=== PATIENT | female | born 1985 | race Caucasian/White ===

== ENCOUNTER 2017-09-07 10:53 | Emergency (ER) | payer MEDICAID, SELFPAY ==
[2017-09-07 10:54] VITALS: BP 136/78; PULSE 127; RESP 16; TEMP 36.4; O2SAT 99; BMI 27.4
--- NOTE | 2017-09-07 11:11 | RAD_ITS ---
STUDY: X-RAY - RIGHT SHOULDER REASON FOR EXAM: Female, 32 years old. ] Chromic clavicular joint pain following injury. TECHNIQUE: 3 view(s) of the shoulder. COMPARISON: None. FINDINGS: Normal glenohumeral articulation. There is widening of the AC joint, with displacement of the clavicle, consistent with a Type III acromioclavicular joint separation. Normal acromion. Normal humeral head and visualized proximal humerus. The soft tissue structures are unremarkable. Normal visualized pulmonary apex. RAD/Shoulder min 2 Views IMPRESSION: Type III right AC joint separation. Electronically Signed: Remi Dolan MD at 12:18 EDT Tel [phone], Service support ,
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
[2017-09-07] MEDS: HYDROcodone Bitartrate/Apap 5/325 Tablet PO (11:57)
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
[2017-09-07 12:55] VITALS: PULSE 88; RESP 16; O2SAT 100
== END 2017-09-07 12:56 | disposition home or self-care (01) ==
LOC: ED 11:29
PROVIDERS: Emergency Provider Emergency Medicine
DX: M24.411 Recurrent dislocation, right shoulder (principal); Y09 Assault by unspecified means; Z86.711 Personal history of pulmonary embolism; Z72.0 Tobacco use
CPT/HCPCS: 73000; 73030; 99283

== ENCOUNTER 2017-12-21 14:38 | Emergency (ER) | payer MEDICAID, SELFPAY ==
[2017-12-21 14:39] VITALS: BP 116/76; PULSE 113; RESP 16; TEMP 36.4; O2SAT 100; BMI 25.0
[2017-12-21] MEDS: HYDROcodone Bitartrate/Apap 5/325 Tablet PO (16:23)
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
--- NOTE | 2017-12-21 16:52 | ED.DEP ---
ED Disposition - Plan for ED Patient: Disposition: Home or Assisted Living Chief Complaint: Upper Extremity Injury Instructions: ED Sprain Shoulder Prescriptions: Hydrocodone Bitart/Apap 5-325 [[place] 5MG-325MG] 1 tab PO Q6H PRN PRN 3 Days #10 tab PRN Reason: Pain Referrals: Care Physician,No Primary [Primary Care Provider] -
[2017-12-21 17:00] VITALS: BP 108/57; PULSE 62; RESP 15; O2SAT 98
== END 2017-12-21 17:00 | disposition home or self-care (01) ==
PROVIDERS: Emergency Provider Emergency Medicine
DX: S43.101A Unspecified dislocation of right acromioclavicular joint, initial encounter (principal); Y09 Assault by unspecified means; Y93.89 Activity, other specified; Y92.9 Unspecified place or not applicable
CPT/HCPCS: 73030; 99283

== ENCOUNTER 2018-04-22 11:07 | Emergency (ER) | payer MEDICAID, SELFPAY ==
[2018-04-22] VITALS (7 sets, daily range): BP systolic 99–116; BP diastolic 65–72; PULSE 67–91; RESP 14–20; TEMP 36.6; O2SAT 98–99; BMI 26.5
[2018-04-22 11:41] LABS: Mucous, Urine 0 SEEN /hpf (<or=2+); Red Blood Cells-Urine 0 SEEN /hpf (0-5)
[2018-04-22 11:43] LABS: Color, Urine Yellow (Yellow); Glucose, Dipstick Normal (Normal); Ketone-Dipstick Negative (Negative); Leukocyte Esterase-Dipstick 25 /ul (Negative); Nitrite-Dipstick Negative (Negative); Occult Blood-Urine Negative /ul (Negative); Protein-Dipstick Negative (Negative); Specific Gravity, Urine 1.015 (1.002-1.030); Urine Bilirubin Dipstick Negative (Negative); Urine Clarity Sl. Cloudy (Clear); Urine Urobilinogen Normal (Normal)
[2018-04-22 11:49] LABS: Bacteria 1+ /hpf (None Seen); Squamous Epithelial Cells - UA 0-5 SEEN /hpf (5-10); White Blood Cells 0-5 SEEN /hpf (0-5)
[2018-04-22 11:53] LABS: Absolute Lymphocyte Count 1.97 X10^3/ul (0.83-4.51); Absolute Neutrophil Count 10.4 X10^3/uL (2.0-7.7); Basophil# 0.05 X10^3/uL; Basophil% 0.4 % (0-1); Eosinophil# 0.08 X10^3/uL; Eosinophils% 0.6 % (0-5); Hematocrit 42.7 % (37-47); Hemoglobin 13.8 g/dl (12.0-15.0); Lymphocyte # 1.97 X10^3/ul (4.0); Mean Corp Hgb Conc 32.3 g/gl (32-36); Mean Corpuscular Hgb 29.8 pg (27.0-32.0); Mean Corpuscular Volume 92.2 fL (81-99); Mean Platelet Vol. 9.8 fl (6.2-12.0); Monocyte# 0.63 X10^3/uL; Monocyte% 4.8 % (0-10); Neutrophil # 10.39 X10^3/uL (2.7-7.7); Platelet Count 412 K/mm3 (150-450); RBC Distribution Width CV 14.1 % (11.6-14.6); RBC Distribution Width SD 47.3 fl (35.1-43.9); Red Blood Count 4.63 M/mm3 (4.2-5.4); White Blood Count 13.1 K/mm3 (4.4-11.0)
[2018-04-22 11:54] LABS: POSITIVE COUNT NO; POSITIVE DIFFERENTIAL NO; POSITIVE MORPHOLOGY NO
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
[2018-04-22 12:00] LABS: Amphetamine Urine VISTA NEGATIVE (<1000 ng/mL); Barbiturate Urine VISTA NEGATIVE (< 200 ng/mL); Benzodiazepine Urine VISTA NEGATIVE (< 200 ng/mL); Cocaine Urine VISTA NEGATIVE (< 300 ng/mL); Ecstacy Urine VISTA NEGATIVE (< 500 ng/mL); Methadone Urine VISTA NEGATIVE (< 300 ng/mL); PCP Urine VISTA NEGATIVE (< 25 ng/mL); THC Urine VISTA POSITIVE (< 50 ng/mL); Vista UDS pH Range 6
[2018-04-22 12:01] LABS: Anion Gap 6 (5-15); BUN 10 mg/dL (7-18); BUN/Creat Ratio 17.8 RATIO (10-20); Calcium,Total 8.5 mg/dL (8.5-10.1); Chloride 107 mmol/L (98-107); Creatinine, Serum 0.56 mg/dL (0.55-1.02); EST Glomerular Filtration Rate 132 mL/min (>60); Est Glom Filt Rate - Afr Amer 160 mL/min (>60); Estimated Creatinine Clearance 114.07 ml/min; Glucose 103 mg/dL (74-106); Potassium 3.3 mmol/L (3.5-5.1); Sodium Level 139 mmol/L (136-145)
[2018-04-22 12:19] LABS: Pregnancy, Serum, hCG Quali. NEGATIVE Negative (0-9 Nonpreg)
--- NOTE | 2018-04-22 16:31 | ED.RN ---
WHEN MADELEINE LEFT SHE SAID I WILL LET MATT OR WHOEVER IS ACETYLENE BURNER TO COME IN FOR THIS PATIENT CALLED CRISIS TO INQUIRE ABOUT ANOTHER PATIENT STATUS, REMINDED THEM THAT WE HAD THIS PATIENT TO BE SEEN YET AND THEY WERE NOT MADE AWARE.
--- NOTE | 2018-04-22 17:45 | ED.RN ---
called dietary regarding meal. left a message.
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
== END 2018-04-22 19:29 | disposition home or self-care (01) ==
PROVIDERS: Emergency Provider Emergency Medicine; Family Provider Family Medicine; PCP Family Medicine
DX: R45.851 Suicidal ideations (principal); F32.9 Major depressive disorder, single episode, unspecified; Z59.0 Homelessness; Z72.0 Tobacco use
CPT/HCPCS: 36415; 80048; 80307; 80320; 81001; 84703; 85025; 99283; G0480

== ENCOUNTER 2018-07-08 18:03 | Emergency (ER) | payer MEDICAID, SELFPAY ==
[2018-07-08 18:03] VITALS: BP 93/63; PULSE 98; RESP 16; TEMP 36.6; O2SAT 100; BMI 25.0
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
[2018-07-08] MEDS: Naproxen 500 MG Tablet PO (18:46)
--- OUTSIDE RECORDS SUMMARY | 2018-09-12 12:33 | XMS RPT_ITS ---
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 yesterday. She complains of chest congestion, cough, and sinus pain. Review of Systems Constitutional: Positive for fever. HENT: Positive for congestion and tinnitus (popping). Negative for ear pain and sore throat. Respiratory: Positive for cough. Cardiovascular: Positive for chest pain. Gastrointestinal: Negative. Negative for nausea and vomiting. Neurological: Positive for headaches. BP 110/80 Pulse 83 Temp 37.9 ?C (100.3 ?F) (Left Tympanic) Resp 16 Wt 63.5 kg (140 lb) SpO2 96% PAST MEDICAL HISTORY Diagnosis Date - Factor 5 Leiden mutation, heterozygous (HCC) history of factor 5- genetic - Pulmonary embolism (HCC) 2016 patient was on eliquis PAST SURGICAL HISTORY Procedure Laterality Date - LAPAROSCOPIC EXC ENDOMETRIOSIS/CYST ALLERGIES Amoxicillin MEDICATIONS DULoxetine (CYMBALTA) 20 mg capsule Take 20 mg by mouth once daily. acetaminophen/diphenhydramine (TYLENOL PM EXTRA STRENGTH ORAL) Take by mouth. levonorgestrel (MIRENA) 20 mcg/24 hr (5 years) IUD 1 Each by INTRAUTERINE route one time only. No family history on file. Social History Substance Use Topics - Smoking status: Former Smoker - Smokeless tobacco: Never Used - Alcohol use No Objective Physical Exam Constitutional: She is well-developed, well-nourished, and in no distress. HENT: Right Ear: Tympanic membrane, external ear and ear canal normal. Left Ear: Tympanic membrane, external ear and ear canal normal. Nose: Mucosal edema, rhinorrhea and sinus tenderness present. Mouth/Throat: Uvula is midline, oropharynx is clear and moist and mucous membranes are normal. No posterior oropharyngeal edema or posterior oropharyngeal erythema. Eyes: Conjunctivae are normal. Neck: Neck supple. Cardiovascular: Normal rate and regular rhythm. Pulmonary/Chest: Effort normal and breath sounds normal. Lymphadenopathy: She has no cervical adenopathy. Neurological: She is alert. Skin: Skin is warm and dry. No rash noted. Nursing note and vitals reviewed. ASSESSMENT/PLAN: 1. Sinobronchitis - ICD9: 473.9, 490, ICD10: J32.9, J40 - Will begin treatment with Zithromax pack as directed - The patient should also be given flonase for the first 5- 7 days of treatment. - Supportive care with plenty of fluids, rest, and analgesia prn. - FLUTICASONE 50 MCG/ACTUATION NASAL SPRAY,SUSPENSION - AZITHROMYCIN 250 MG TABLET - Follow-up with your PCP in 3-5 days if symptoms have not improved or sooner if symptoms worsen - Discussed red flags and need for immediate medical evaluation if any occur. - Discussed supportive care treatment with fluids, rest and analgesia. - Discussed expected course of illness Imani Auguste APRN.FACUNDO HALEY Observed: 06/24/2018 Status: COMPLETED Source: D LO 3:45 PM [facility] REPOSITORY Office Visit ([facility]) ANGIE BECKER ([id number]) 1985 F CHT Date Time Provider Department 06/24/18 3:45 PM IMANI AUGUSTE (FACUNDO) [facility] During your visit today, we recorded the following information about you: Temperature Pulse Respiration Blood pressure 100.3 degrees 83/minute 16/minute 110/80 Weight 63.5 kg Imani Auguste APRN.CNP 06/24/2018 4:45 PM Signed Subjective HPI Angie Becker is a 32 year old female who presents with URI since 05/18, she was treated here for otitis which improved but she feels the URI symptoms have not. She has had waxing/waning of symptoms but feeling worse the past few days. She has had a fever since yesterday. She complains of chest congestion, cough, and sinus pain. Review of Systems Constitutional: Positive for fever. HENT: Positive for congestion and tinnitus (popping). Negative for ear pain and sore throat. Respiratory: Positive for cough. Cardiovascular: Positive for chest pain. Gastrointestinal: Negative. Negative for nausea and vomiting. Neurological: Positive for headaches. BP 110/80 Pulse 83 Temp 37.9 ?C (100.3 ?F) (Left Tympanic) Resp 16 Wt 63.5 kg (140 lb) SpO2 96% PAST MEDICAL HISTORY Diagnosis Date - Factor 5 Leiden mutation, heterozygous (HCC) history of factor 5- genetic - Pulmonary embolism (HCC) 2016 patient was on eliquis PAST SURGICAL HISTORY Procedure Laterality Date - LAPAROSCOPIC EXC ENDOMETRIOSIS/CYST ALLERGIES Amoxicillin MEDICATIONS DULoxetine (CYMBALTA) 20 mg capsule Take 20 mg by mouth once daily. acetaminophen/diphenhydramine (TYLENOL PM EXTRA STRENGTH ORAL) Take by mouth. levonorgestrel (MIRENA) 20 mcg/24 hr (5 years) IUD 1 Each by INTRAUTERINE route one time only. No family history on file. Social History Substance Use Topics - Smoking status: Former Smoker - Smokeless tobacco: Never Used - Alcohol use No Objective Physical Exam Constitutional: She is well-developed, well-nourished, and in no distress. HENT: Right Ear: Tympanic membrane, external ear and ear canal normal. Left Ear: Tympanic membrane, external ear and ear canal normal. Nose: Mucosal edema, rhinorrhea and sinus tenderness present. Mouth/Throat: Uvula is midline, oropharynx is clear and moist and mucous membranes are normal. No posterior oropharyngeal edema or posterior oropharyngeal erythema. Eyes: Conjunctivae are normal. Neck: Neck supple. Cardiovascular: Normal rate and regular rhythm. Pulmonary/Chest: Effort normal and breath sounds normal. Lymphadenopathy: She has no cervical adenopathy. Neurological: She is alert. Skin: Skin is warm and dry. No rash noted. Nursing note and vitals reviewed. ASSESSMENT/PLAN: 1. Sinobronchitis - ICD9: 473.9, 490, ICD10: J32.9, J40 - Will begin treatment with Zithromax pack as directed - The patient should also be given flonase for the first 5- 7 days of treatment. - Supportive care with plenty of fluids, rest, and analgesia prn. - FLUTICASONE 50 MCG/ACTUATION NASAL SPRAY,SUSPENSION - AZITHROMYCIN 250 MG TABLET - Follow-up with your PCP in 3-5 days if symptoms have not improved or sooner if symptoms worsen - Discussed red flags and need for immediate medical evaluation if any occur. - Discussed supportive care treatment with fluids, rest and analgesia. - Discussed expected course of illness TIERA Helms APRN.CNP 06/24/2018 3:56 PM Signed ASSESSMENT/PLAN: 1. Sinobronchitis - ICD9: 473.9, 490, ICD10: J32.9, J40 - Will begin treatment with Zithromax pack as directed - The patient should also be given flonase for the first 5- 7 days of treatment. - Supportive care with plenty of fluids, rest, and analgesia prn. - FLUTICASONE 50 MCG/ACTUATION NASAL SPRAY,SUSPENSION - AZITHROMYCIN 250 MG TABLET - Follow-up with your PCP in 3-5 days if symptoms have not improved or sooner if symptoms worsen - Discussed red flags and need for immediate medical evaluation if any occur. - Discussed supportive care treatment with fluids, rest and analgesia. - Discussed expected course of illness Imani Auguste APRN.FACUNDO Acute Sinusitis Each of us has four paired cavities (spaces) in our head that are connected to the nose by narrow channels. These cavities, known as sinuses, produce thin mucus that drains out of the channels of the nose. This drainage helps keep the nose clean and free of particles and bacteria. Normally, sinuses are filled with air. But when sinuses become blocked and filled with fluid, bacteria can grow and cause an infection (bacterial sinusitis). Conditions that cause sinus blockage include: ? the common cold ? allergic rhinitis (swelling of the lining of the nose due to allergies) ? nasal polyps (small growths in the lining of the nose), or ? a deviated septum (the wall between the left and right nostril is crooked). Allergies, such as hay fever, can also cause swelling and poor drainage of the sinuses. One confusing factor to consider is that many people with ?sinus headaches? are actually suffering from migraines. In fact, in large clinical studies, up to 90% of people who reported sinus headaches were diagnosed with migraines instead. Migraines can cause headaches in combination with facial pressure over the sinuses, a runny nose, and nasal congestion. If you have symptoms that involve the sinuses, it may be difficult to tell if you have sinusitis, a cold, nasal allergy, or even a migraine. This article will describe the symptoms, diagnosis, and treatment of sinusitis, and how to tell the difference between sinusitis, cold, migraines, and nasal allergy. What is sinusitis? Sinusitis is an inflammation, or swelling, of the tissue lining the sinuses. There are two types of sinusitis: ? Acute bacterial sinusitis: a sudden onset of cold symptoms such as runny nose, stuffy nose, and facial pain that does not go away after 10 days, or symptoms that seem to begin improving but return worse than the initial symptoms. It responds well to antibiotics and decongestants. ? Chronic sinusitis: a condition defined by nasal congestion, drainage, facial pain/pressure, and decreased sense of smell for at least 12 weeks. Who gets sinusitis? Every year, approximately 1 billion Americans have at least one episode of viral sinusitis. About 37 million will develop a bacterial sinusitis. People who have the following conditions have a higher risk of sinusitis: ? Nasal mucus membrane swelling, as from a common cold or allergies ? Blockage of drainage ducts, leading to trapping of mucus ? Structure differences that narrow the drainage ducts ? Conditions that result in an increased risk of infection ? Polyps (growths) In children, common factors in the environment that contribute to sinusitis include allergies, illness from other children at day care or school, and smoke in the environment. In adults, the contributing factors are most frequently viral infections, allergies, and smoking. What are the signs and symptoms of acute sinusitis? The primary symptoms of acute sinusitis include: ? Facial pain/pressure/tenderness ? Nasal stuffiness ? Nasal discharge (thick yellow or green discharge from nose), especially if it is long-lasting. These also may be present with viral illness. ? Loss of smell and taste ? Cough/congestion Additional symptoms may include: ? Fever of 102? or higher ? Ear pain ? Headache ? Bad breath ? Fatigue ? Ache in upper jaw and teeth How is sinusitis diagnosed? To diagnose sinusitis, your doctor will discuss your symptoms and examine your nose for swelling and drainage. Your personal history is most important in diagnosing sinusitis. A physical exam of the ears, nose, and throat is performed to look for signs of obstruction (blockage) or infection. Some patients may have conditions that may need to be referred to a specialist, such as an ear, nose, and throat (ENT) physician. How is sinusitis treated? Acute sinusitis. If you have a simple sinusitis infection, your health care provider may recommend treatment with [id number] medications for cold and allergy, nasal saline irrigation, and drinking fluids (as most sinusitis is viral). Use of prescription intranasal steroid sprays might be added to help control symptoms. However, non-prescription drops or sprays should not be used beyond 5 days -- or they may actually increase congestion. If symptoms do not improve after at least 10 days, if the symptoms seem to be getting worse, or if medications for cold or allergy do not improve symptoms, a bacterial infection may be causing the sinusitis. In this case, antibiotics are given for 7 days in adults and 10 days in children. Antibiotics should improve symptoms within 48 hours. Chronic sinusitis. Treating chronic sinusitis begins with controlling the underlying condition, which is most often allergies. Standard treatments include intranasal steroid sprays, topical antihistamine sprays, or antihistamine pills, and leukotriene antagonists such as montelukast. Often you will be encouraged to rinse the nose with saline irrigations. Sometimes medications may be added to these irrigations. If sinusitis is not controlled, the next step is a visit with an Ear, Nose and Throat Specialist. Will I need to make lifestyle changes? If you have indoor allergies, avoiding triggers -- such as animal dander and dust mites ? is recommended in addition to medications. Smoking is never recommended, but if you do smoke, strongly consider a program to help you stop smoking, as this may be the main reason you have sinus infections. No special diet is required, but drinking extra fluids helps to thin nasal secretions. What are the symptoms of the common cold? An upper respiratory infection (the common cold) is usually caused by a virus that infects the nose and throat. Most upper respiratory infections are not bacterial and do not respond to antibiotics. A cold may cause swelling in the sinuses, preventing the outflow of mucus. Cold symptoms include nasal congestion, runny nose, post-nasal drip (mror-bm-team release of nasal fluid into the back of the throat), headache, achiness, and fatigue. Cough and fever may also go along with these symptoms. Cold symptoms usually build, peak, and slowly disappear. No treatment is necessary for a cold, but some medications can ease symptoms. For example, decongestants may decrease drainage and open the nasal passages. Analgesics (pain relievers) may help with fever and headache. Cough medication may help, as well. Colds will typically last from a few days to about a week. What is the harm in getting an antibiotic for a common cold? Viral infections like the common cold are not cured by antibiotics. Taking an antibiotic for a viral infection unnecessarily puts you at risk for side effects related to the antibiotic. In addition, the overuse of antibiotics leads to antibiotic resistance, which may make future infections more difficult to treat. Finally, the use of inappropriate medication increases health care costs unnecessarily. What are the symptoms of nasal allergy? Symptoms of nasal allergy include: ? Sneezing ? Itchy nose ? Clear, watery nasal discharge ? Nasal blockage ? Feeling fatigued How is nasal allergy treated? Usually medications are prescribed to relieve symptoms. These may include antihistamines, with or without decongestants, or steroid nasal sprays. Other nasal sprays, which deliver antihistamines or cromolyn sodium, are sometimes helpful. If allergy symptoms are chronic (long-term), allergy testing and allergy shots (immunotherapy) may be helpful. How can I tell if I have a sinus infection, cold, or nasal allergy? Although the symptoms of sinusitis and nasal allergy may occur with a common cold, in general, cold-related symptoms disappear within 1 week. The point at which a normal cold ends and a sinus condition begins is not always easy to know. If you are fighting off a cold and develop symptoms of a sinus infection or nasal allergy, see your health care provider. You will be asked to describe your symptoms and medical history. ? How do I know if my sinus condition requires the care of an ear, nose, and throat specialist? Most routine sinus conditions are easily cared for by primary care physicians. If, however, you are bothered by ongoing abnormal symptoms, recurring infections, or have abnormal X-ray findings or complications, a referral to a specialist is appropriate. References ? Willis Esparza et al., IDSA Clinical Practice Guideline for Acute Bacterial Rhinosinusitis in Children and Adults. Clinical Infectious Diseases; 2012;54(8):4387-2559. ? Socrates Ramos, Sinusitis: Allergies, antibiotics, aspirin, asthma. [facility] Journal of Medicine 2006; 73(7): 671-678 ? [employer] [place] [employer]ious [employer]. Sinusitis (Sinus Infection) Accessed 05/01/2015. ? [employer], [employer]. Sinusitis Accessed 05/01/2015. ? [employer]. Sinus Information Accessed 05/01/2015. ? Lynn Centeno., Prevalence of migraine in patients with a history of self-reported or physician-diagnosed sinus headache. [employer] Med, 2004. 164(16):1769-72. ? Copyright 8563-5859 [facility]. All rights reserved. Referring Provider: SELF [200] Allergies As of Date: 06/24/2018 Noted Allergy Reaction AMOXICILLIN 06/19/2014 7 - Swelling Comments: Heavy breathing Date Reviewed: 06/24/2018 Reviewed by: Delio Tena Ma - Fully Assessed Reason for Visit: URI [115] Cmt: x 5-6 days Primary Visit Diagnosis:Sinobronchitis [J32.9, J40] Order(s):fluticasone (FLONASE) 50 mcg/actuation nasal sprayUse 2 Sprays in each nostril once daily. Rinse mouth after use.Disp: 1 BottleRfl: 0 azithromycin (ZITHROMAX) 250 mg tabletTake 2 tablets today then one tablet daily for 4 days.Disp: 1 PackageRfl: 0 Prescriptions as of 06/24/2018 Sig: FLUTICASONE 50 MCG/ACTUATION * Use 2 Sprays in each nostril * AZITHROMYCIN 250 MG TABLET Take 2 tablets today then one* Problem List As Of Date: 06/24/2018 (None) Other instructions from your clinician: ASSESSMENT/PLAN: 1. Sinobronchitis - ICD9: 473.9, 490, ICD10: J32.9, J40 - Will begin treatment with Zithromax pack as directed - The patient should also be given flonase for the first 5-7 days of treatment. - Supportive care with plenty of fluids, rest, and analgesia prn. - FLUTICASONE 50 MCG/ACTUATION NASAL SPRAY,SUSPENSION - AZITHROMYCIN 250 MG TABLET - Follow-up with your PCP in 3-5 days if symptoms have not improved or sooner if symptoms worsen - Discussed red flags and need for immediate medical evaluation if any occur. - Discussed supportive care treatment with fluids, rest and analgesia. - Discussed expected course of illness Imani Auguste, TELEVISION SPECIALIST.SENIOR SALES ASSOCIATE Acute Sinusitis Each of us has four paired cavities (spaces) in our head that are connected to the nose by narrow channels. These cavities, known as sinuses, produce thin mucus that drains out of the channels of the nose. This drainage helps keep the nose clean and free of particles and bacteria. Normally, sinuses are filled with air. But when sinuses become blocked and filled with fluid, bacteria can grow and cause an infection (bacterial sinusitis). Conditions that cause sinus blockage include: ? the common cold ? allergic rhinitis (swelling of the lining of the nose due to allergies) ? nasal polyps (small growths in the lining of the nose), or ? a deviated septum (the wall between the left and right nostril is crooked). Allergies, such as hay fever, can also cause swelling and poor drainage of the sinuses. One confusing factor to consider is that many people with ?sinus headaches? are actually suffering from migraines. In fact, in large clinical studies, up to 90% of people who reported sinus headaches were diagnosed with migraines instead. Migraines can cause headaches in combination with facial pressure over the sinuses, a runny nose, and nasal congestion. If you have symptoms that involve the sinuses, it may be difficult to tell if you have sinusitis, a cold, nasal allergy, or even a migraine. This article will describe the symptoms, diagnosis, and treatment of sinusitis, and how to tell the difference between sinusitis, cold, migraines, and nasal allergy. What is sinusitis? Sinusitis is an inflammation, or swelling, of the tissue lining the sinuses. There are two types of sinusitis: ? Acute bacterial sinusitis: a sudden onset of cold symptoms such as runny nose, stuffy nose, and facial pain that does not go away after 10 days, or symptoms that seem to begin improving but return worse than the initial symptoms. It responds well to antibiotics and decongestants. ? Chronic sinusitis: a condition defined by nasal congestion, drainage, facial pain/pressure, and decreased sense of smell for at least 12 weeks. Who gets sinusitis? Every year, approximately 1 billion Americans have at least one episode of viral sinusitis. About 37 million will develop a bacterial sinusitis. People who have the following conditions have a higher risk of sinusitis: ? Nasal mucus membrane swelling, as from a common cold or allergies ? Blockage of drainage ducts, leading to trapping of mucus ? Structure differences that narrow the drainage ducts ? Conditions that result in an increased risk of infection ? Polyps (growths) In children, common factors in the environment that contribute to sinusitis include allergies, illness from other children at day care or school, and smoke in the environment. In adults, the contributing factors are most frequently viral infections, allergies, and smoking. What are the signs and symptoms of acute sinusitis? The primary symptoms of acute sinusitis include: ? Facial pain/pressure/tenderness ? Nasal stuffiness ? Nasal discharge (thick yellow or green discharge from nose), especially if it is long-lasting. These also may be present with viral illness. ? Loss of smell and taste ? Cough/congestion Additional symptoms may include: ? Fever of 102? or higher ? Ear pain ? Headache ? Bad breath ? Fatigue ? Ache in upper jaw and teeth How is sinusitis diagnosed? To diagnose sinusitis, your doctor will discuss your symptoms and examine your nose for swelling and drainage. Your personal history is most important in diagnosing sinusitis. A physical exam of the ears, nose, and throat is performed to look for signs of obstruction (blockage) or infection. Some patients may have conditions that may need to be referred to a specialist, such as an ear, nose, and throat (ENT) physician. How is sinusitis treated? Acute sinusitis. If you have a simple sinusitis infection, your health care provider may recommend treatment with mpju-kgn-imgvoxl medications for cold and allergy, nasal saline irrigation, and drinking fluids (as most sinusitis is viral). Use of prescription intranasal steroid sprays might be added to help control symptoms. However, non- prescription drops or sprays should not be used beyond 5 days -- or they may actually increase congestion. If symptoms do not improve after at least 10 days, if the symptoms seem to be getting worse, or if medications for cold or allergy do not improve symptoms, a bacterial infection may be causing the sinusitis. In this case, antibiotics are given for 7 days in adults and 10 days in children. Antibiotics should improve symptoms within 48 hours. Chronic sinusitis. Treating chronic sinusitis begins with controlling the underlying condition, which is most often allergies. Standard treatments include intranasal steroid sprays, topical antihistamine sprays, or antihistamine pills, and leukotriene antagonists such as montelukast. Often you will be encouraged to rinse the nose with saline irrigations. Sometimes medications may be added to these irrigations. If sinusitis is not controlled, the next step is a visit with an Ear, Nose and Throat Specialist. Will I need to make lifestyle changes? If you have indoor allergies, avoiding triggers -- such as animal dander and dust mites ? is recommended in addition to medications. Smoking is never recommended, but if you do smoke, strongly consider a program to help you stop smoking, as this may be the main reason you have sinus infections. No special diet is required, but drinking extra fluids helps to thin nasal secretions. What are the symptoms of the common cold? An upper respiratory infection (the common cold) is usually caused by a virus that infects the nose and throat. Most upper respiratory infections are not bacterial and do not respond to antibiotics. A cold may cause swelling in the sinuses, preventing the outflow of mucus. Cold symptoms include nasal congestion, runny nose, post- nasal drip (ivrq-wf-gyyn release of nasal fluid into the back of the throat), headache, achiness, and fatigue. Cough and fever may also go along with these symptoms. Cold symptoms usually build, peak, and slowly disappear. No treatment is necessary for a cold, but some medications can ease symptoms. For example, decongestants may decrease drainage and open the nasal passages. Analgesics (pain relievers) may help with fever and headache. Cough medication may help, as well. Colds will typically last from a few days to about a week. What is the harm in getting an antibiotic for a common cold? Viral infections like the common cold are not cured by antibiotics. Taking an antibiotic for a viral infection unnecessarily puts you at risk for side effects related to the antibiotic. In addition, the overuse of antibiotics leads to antibiotic resistance, which may make future infections more difficult to treat. Finally, the use of inappropriate medication increases health care costs unnecessarily. What are the symptoms of nasal allergy? Symptoms of nasal allergy include: ? Sneezing ? Itchy nose ? Clear, watery nasal discharge ? Nasal blockage ? Feeling fatigued How is nasal allergy treated? Usually medications are prescribed to relieve symptoms. These may include antihistamines, with or without decongestants, or steroid nasal sprays. Other nasal sprays, which deliver antihistamines or cromolyn sodium, are sometimes helpful. If allergy symptoms are chronic (long- term), allergy testing and allergy shots (immunotherapy) may be helpful. How can I tell if I have a sinus infection, cold, or nasal allergy? Although the symptoms of sinusitis and nasal allergy may occur with a common cold, in general, cold-related symptoms disappear within 1 week. The point at which a normal cold ends and a sinus condition begins is not always easy to know. If you are fighting off a cold and develop symptoms of a sinus infection or nasal allergy, see your health care provider. You will be asked to describe your symptoms and medical history. ? How do I know if my sinus condition requires the care of an ear, nose, and throat specialist? Most routine sinus conditions are easily cared for by primary care physicians. If, however, you are bothered by ongoing abnormal symptoms, recurring infections, or have abnormal X-ray findings or complications, a referral to a specialist is appropriate. References ? Kimmy Esparza al., IDSA Clinical Practice Guideline for Acute Bacterial Rhinosinusitis in Children and Adults. Clinical Infectious Diseases; 2012;54(8):3376-1469. ? Socrates Ramos, Sinusitis: Allergies, antibiotics, aspirin, asthma. [facility] Journal of Medicine 2006; 73(7): 671-678 ? National [place] of Allergy [employer] Infectious [employer]. Sinusitis (Sinus Infection) Accessed 05/01/2015. ? [employer], [employer]. Sinusitis Accessed 05/01/2015. ? [employer]. Sinus Information Accessed 05/01/2015. ? Shoaib Centeno, Prevalence of migraine in patients with a history of self-reported or physician-diagnosed sinus headache. [employer], 2004. 164(16):1769-72. ? Copyright 8878-9803 The [facility]. All rights reserved. Prescriptions ordered this encounter Disp Refills Start End FLUTICASONE 50 MCG/ACTUATION NASAL S* 1 Aries* 0 06/24/2018 Route: EACH NOSTRIL Sig: Use 2 Sprays in each nostril once daily. Rinse mouth after use. AZITHROMYCIN 250 MG TABLET 1 Pa* 0 06/24/2018 Sig: Take 2 tablets today then one tablet daily for 4 days. Medications Discontinued During This Encounter levonorgestrel (MIRENA) 20 mcg/24 hr* 06/24/2018 Class: Historical Med Route: INTRAUTERINE Si Each by INTRAUTERINE route one time only. Disc: Reason for discontinue is not on file. DULoxetine (CYMBALTA) 20 mg capsule 06/24/2018 Class: Historical Med Route: ORAL Sig: Take 20 mg by mouth once daily. Disc: Reason for discontinue is not on file. acetaminophen/diphenhydramine (TYLEN* 06/24/2018 Class: Historical Med Route: ORAL Sig: Take by mouth. Disc: Reason for discontinue is not on file. Encounter Status:Closed by IMANI AUGUSTE on 06/24/18 PROGRESS Observed: 05/18/2018 Status: COMPLETED Source: D LO 5:17 PM [facility] REPOSITORY HNO ID: [id number] Author: Kimmy Anglin Service: (none) Author Type: Nurse Practitioner Type: Progress Notes Filed: 05/18/2018 5:37 PM Note Text: Subjective The history is provided by the patient. No emulsion coater was used. TEGAN Becker is a 32 year old female who presents today for CC of left ear pain, sore throat, body aches, and headache for one day. Alleviating/Treatment: She has tried tylenol x 1 Aggravating: Swallowing. Chewing. Risk factors: Family members ill. BP 100/72 Pulse 80 Temp 37 ?C (98.6 ?F) (Tympanic) Resp 18 Wt 62.7 kg (138 lb 3.2 oz) SpO2 99% PAST MEDICAL HISTORY Diagnosis Date - Factor 5 Leiden mutation, heterozygous (HCC) history of factor 5- genetic - Pulmonary embolism (HCC) 2016 patient was on eliquis Social History Marital status: Single Spouse name: Years of education: Number of children: Social History Main Topics Smoking status: Former Smoker Packs/day: 0.00 Years: 0.00 Smokeless tobacco: Never Used Alcohol use: No Drug use: No I have confirmed and edited as necessary, the [facility] Review of Systems Constitutional: Negative for chills and fever. HENT: Positive for ear pain and sore throat. Negative for congestion and sinus pain. Respiratory: Negative for cough. Musculoskeletal: Positive for myalgias. Neurological: Positive for headaches. All other systems reviewed and are negative. Objective Physical Exam Constitutional: She is well-developed, well-nourished, and in no distress. HENT: Head: Normocephalic and atraumatic. Right Ear: External ear and ear canal normal. Tympanic membrane is not injected, not erythematous, not retracted and not bulging. No middle ear effusion. Left Ear: Ear canal normal. Tympanic membrane is erythematous and retracted. Tympanic membrane is not injected and not bulging. A middle ear effusion is present. Nose: Mucosal edema and rhinorrhea present. Right sinus exhibits no maxillary sinus tenderness and no frontal sinus tenderness. Left sinus exhibits no maxillary sinus tenderness and no frontal sinus tenderness. Mouth/Throat: Uvula is midline and mucous membranes are normal. Posterior oropharyngeal edema and posterior oropharyngeal erythema present. Pulmonary/Chest: Breath sounds normal. She has no decreased breath sounds. She has no wheezes. She has no rhonchi. She has no rales. Lymphadenopathy: Head (right side): No submental, no submandibular and no tonsillar adenopathy present. Head (left side): No submental, no submandibular and no tonsillar adenopathy present. She has no cervical adenopathy. Right cervical: No superficial cervical adenopathy present. Left cervical: No superficial cervical adenopathy present. Neurological: She is alert. Skin: Skin is warm and dry. Psychiatric: Affect normal. Nursing note and vitals reviewed. ASSESSMENT/PLAN: 1. URI, acute - ICD9: 465.9, ICD10: J06.9 (primary diagnosis) - Discussed viral etiology and rationale for treatment. Rest, increase water intake Motrin or Tylenol as needed for fever or pain. Salt water gargles, chloraseptic spray or lozenges as needed for sore throat. Nasal spray as needed Cool mist humidifier at night A cold normally lasts 7-10 days. If your symptoms are lasting longer, develop fever, or worsening by that time instead of improving then return to clinic or follow up with PCP for re-evaluation. -Sudafed (generic is fine), behind the counter, 2x30 mg tabs twice daily as needed for congestion -Mucinex (generic is fine) 1200 mg twice daily to help with cough and to thin out mucus * Seek medical care immediately, call 911, go to ER if you have chest pain, difficulty breathing, shortness of breath, inability to swallow. 2. Acute suppurative otitis media of left ear - ICD9: 382.00, ICD10: H66.005 - Will begin treatment with omnicef 1 capsule twice a day for 10 days - Supportive care with plenty of fluids, rest, Tylenol (generic acetaminophen) 500 mg-2 tabs every 8 hrs. as needed for fever and aches Ibuprofen 600 mg (3-200mg tablets) every 6 hours - Follow up in one week if symptoms persist or worsen. - CEFDINIR 300 MG CAPSULE GO TO THE ER IF: 1. You have a severe headache or pain around the ear. 2. You notice swelling around the ear. 3. You have a seizure (convulsion), twitching of the facial muscles, or passes out. 4. You are dizzy, have a stiff neck, or cannot walk or talk normally. Diagnosis and treatment plan were discussed and questions were answered to the patient's satisfaction. Pt acknowledged understanding of concepts and follow up plan. Specific signs and symptoms that would indicate the need for higher level of care were discussed in detail warranting prompt ER evaluation. Kimmy Anglin APRN.SENIOR SALES ASSOCIATE CNOV Observed: 05/18/2018 Status: COMPLETED Source: D LO 5:00 PM [facility] REPOSITORY Office Visit (WSTR) ANGIE EBCKER ([id number]) 1985 F [place] Date Time Provider Department 05/18/18 5:00 PM KIMMY ANGLIN ([facility]) [facility] During your visit today, we recorded the following information about you: Temperature Pulse Respiration Blood pressure 98.6 degrees 80/minute 18/minute 100/72 Weight 62.7 kg Kimmy Anglin APRN.CNP 05/18/2018 5:37 PM Signed Subjective The history is provided by the patient. No emulsion coater was used. TEGAN Becker is a 32 year old female who presents today for CC of left ear pain, sore throat, body aches, and headache for one day. Alleviating/Treatment: She has tried tylenol x 1 Aggravating: Swallowing. Chewing. Risk factors: Family members ill. BP 100/72 Pulse 80 Temp 37 ?C (98.6 ?F) (Tympanic) Resp 18 Wt 62.7 kg (138 lb 3.2 oz) SpO2 99% PAST MEDICAL HISTORY Diagnosis Date - Factor 5 Leiden mutation, heterozygous (HCC) history of factor 5- genetic - Pulmonary embolism (HCC) 2016 patient was on eliquis Social History Marital status: Single Spouse name: Years of education: Number of children: Social History Main Topics Smoking status: Former Smoker Packs/day: 0.00 Years: 0.00 Smokeless tobacco: Never Used Alcohol use: No Drug use: No I have confirmed and edited as necessary, the [facility] Review of Systems Constitutional: Negative for chills and fever. HENT: Positive for ear pain and sore throat. Negative for congestion and sinus pain. Respiratory: Negative for cough. Musculoskeletal: Positive for myalgias. Neurological: Positive for headaches. All other systems reviewed and are negative. Objective Physical Exam Constitutional: She is well-developed, well-nourished, and in no distress. HENT: Head: Normocephalic and atraumatic. Right Ear: External ear and ear canal normal. Tympanic membrane is not injected, not erythematous, not retracted and not bulging. No middle ear effusion. Left Ear: Ear canal normal. Tympanic membrane is erythematous and retracted. Tympanic membrane is not injected and not bulging. A middle ear effusion is present. Nose: Mucosal edema and rhinorrhea present. Right sinus exhibits no maxillary sinus tenderness and no frontal sinus tenderness. Left sinus exhibits no maxillary sinus tenderness and no frontal sinus tenderness. Mouth/Throat: Uvula is midline and mucous membranes are normal. Posterior oropharyngeal edema and posterior oropharyngeal erythema present. Pulmonary/Chest: Breath sounds normal. She has no decreased breath sounds. She has no wheezes. She has no rhonchi. She has no rales. Lymphadenopathy: Head (right side): No submental, no submandibular and no tonsillar adenopathy present. Head (left side): No submental, no submandibular and no tonsillar adenopathy present. She has no cervical adenopathy. Right cervical: No superficial cervical adenopathy present. Left cervical: No superficial cervical adenopathy present. Neurological: She is alert. Skin: Skin is warm and dry. Psychiatric: Affect normal. Nursing note and vitals reviewed. ASSESSMENT/PLAN: 1. URI, acute - ICD9: 465.9, ICD10: J06.9 (primary diagnosis) - Discussed viral etiology and rationale for treatment. Rest, increase water intake Motrin or Tylenol as needed for fever or pain. Salt water gargles, chloraseptic spray or lozenges as needed for sore throat. Nasal spray as needed Cool mist humidifier at night A cold normally lasts 7-10 days. If your symptoms are lasting longer, develop fever, or worsening by that time instead of improving then return to clinic or follow up with PCP for re-evaluation. -Sudafed (generic is fine), behind the counter, 2x30 mg tabs twice daily as needed for congestion -Mucinex (generic is fine) 1200 mg twice daily to help with cough and to thin out mucus * Seek medical care immediately, call 911, go to ER if you have chest pain, difficulty breathing, shortness of breath, inability to swallow. 2. Acute suppurative otitis media of left ear - ICD9: 382.00, ICD10: H66.005 - Will begin treatment with omnicef 1 capsule twice a day for 10 days - Supportive care with plenty of fluids, rest, Tylenol (generic acetaminophen) 500 mg-2 tabs every 8 hrs. as needed for fever and aches Ibuprofen 600 mg (3-200mg tablets) every 6 hours - Follow up in one week if symptoms persist or worsen. - CEFDINIR 300 MG CAPSULE GO TO THE ER IF: 1. You have a severe headache or pain around the ear. 2. You notice swelling around the ear. 3. You have a seizure (convulsion), twitching of the facial muscles, or passes out. 4. You are dizzy, have a stiff neck, or cannot walk or talk normally. Diagnosis and treatment plan were discussed and questions were answered to the patient's satisfaction. Pt acknowledged understanding of concepts and follow up plan. Specific signs and symptoms that would indicate the need for higher level of care were discussed in detail warranting prompt ER evaluation. TIERA Terry APRN.CNP 05/18/2018 5:28 PM Signed ASSESSMENT/PLAN: 1. URI, acute - ICD9: 465.9, ICD10: J06.9 (primary diagnosis) - Discussed viral etiology and rationale for treatment. Rest, increase water intake Motrin or Tylenol as needed for fever or pain. Salt water gargles, chloraseptic spray or lozenges as needed for sore throat. Nasal spray as needed Cool mist humidifier at night A cold normally lasts 7-10 days. If your symptoms are lasting longer, develop fever, or worsening by that time instead of improving then return to clinic or follow up with PCP for re-evaluation. -Sudafed (generic is fine), behind the counter, 2x30 mg tabs twice daily as needed for congestion -Mucinex (generic is fine) 1200 mg twice daily to help with cough and to thin out mucus * Seek medical care immediately, call 911, go to ER if you have chest pain, difficulty breathing, shortness of breath, inability to swallow. 2. Acute suppurative otitis media of left ear - ICD9: 382.00, ICD10: H66.005 - Will begin treatment with omnicef 1 capsule twice a day for 10 days - Supportive care with plenty of fluids, rest, Tylenol (generic acetaminophen) 500 mg-2 tabs every 8 hrs. as needed for fever and aches Ibuprofen 600 mg (3-200mg tablets) every 6 hours - Follow up in one week if symptoms persist or worsen. - CEFDINIR 300 MG CAPSULE GO TO THE ER IF: 1. You have a severe headache or pain around the ear. 2. You notice swelling around the ear. 3. You have a seizure (convulsion), twitching of the facial muscles, or passes out. 4. You are dizzy, have a stiff neck, or cannot walk or talk normally. Referring Provider: SELF [200] Allergies As of Date: 05/18/2018 Noted Allergy Reaction AMOXICILLIN 06/19/2014 7 - Swelling Comments: Heavy breathing Date Reviewed: 05/18/2018 Reviewed by: Kimmy ([facility]) [place] - Fully Assessed Reason for Visit: left ear pain, ST and drainage, bodyaches and MAYES [Other] Cmt: x 1 day Primary Visit Diagnosis:URI, acute [J06.9] Other Visit Diagnosis:Acute suppurative otitis media of left ear [H66.005] Order(s):cefdinir (OMNICEF) 300 mg capsuleTake 1 capsule by mouth twice daily for 10 days.Disp: 20 capsuleRfl: 0 Prescriptions as of 05/18/2018 Sig: CEFDINIR 300 MG CAPSULE Take 1 capsule by mouth twice* DULOXETINE 20 MG CAPSULE,SUE* Take 20 mg by mouth once gadiel* TYLENOL PM EXTRA STRENGTH ORAL Take by mouth. LEVONORGESTREL 20 MCG/24 HR (* 1 Each by INTRAUTERINE route * Problem List As Of Date: 05/18/2018 (None) Other instructions from your clinician: ASSESSMENT/PLAN: 1. URI, acute - ICD9: 465.9, ICD10: J06.9 (primary diagnosis) - Discussed viral etiology and rationale for treatment. Rest, increase water intake Motrin or Tylenol as needed for fever or pain. Salt water gargles, chloraseptic spray or lozenges as needed for sore throat. Nasal spray as needed Cool mist humidifier at night A cold normally lasts 7-10 days. If your symptoms are lasting longer, develop fever, or worsening by that time instead of improving then return to clinic or follow up with PCP for re-evaluation. -Sudafed (generic is fine), behind the counter, 2x30 mg tabs twice daily as needed for congestion -Mucinex (generic is fine) 1200 mg twice daily to help with cough and to thin out mucus * Seek medical care immediately, call 911, go to ER if you have chest pain, difficulty breathing, shortness of breath, inability to swallow. 2. Acute suppurative otitis media of left ear - ICD9: 382.00, ICD10: H66.005 - Will begin treatment with omnicef 1 capsule twice a day for 10 days - Supportive care with plenty of fluids, rest, Tylenol (generic acetaminophen) 500 mg-2 tabs every 8 hrs. as needed for fever and aches Ibuprofen 600 mg (3-200mg tablets) every 6 hours - Follow up in one week if symptoms persist or worsen. - CEFDINIR 300 MG CAPSULE GO TO THE ER IF: 1. You have a severe headache or pain around the ear. 2. You notice swelling around the ear. 3. You have a seizure (convulsion), twitching of the facial muscles, or passes out. 4. You are dizzy, have a stiff neck, or cannot walk or talk normally. Prescriptions ordered this encounter Disp Refills Start End CEFDINIR 300 MG CAPSULE 20 c* 0 05/18/2018 05/28/2018 Route: ORAL Sig: Take 1 capsule by mouth twice daily for 10 days. Encounter Status:Closed by KIMMY ANGLIN CNP on 05/18/18 EMERGENCY DEPARTMENT Observed: 04/23/2018 Status: F Source: [place] SUMMARY 8:00 AM [facility] Medical Records Department [address] [place] [address] Emergency Department Summary 04/22/18 1155 MR#: [id number] Acct: [id number] Name: ANGIE BAUMANN Rep #: [id number] : 1985 32 From: Karson Aguillon MD PCP: Waqas Simons md Status: DEP ER - ER Visit Summary Date of Service: 04/22/18 Chief Complaint: Suicide ideation History of Present Illness: The patient is a 32 F who presents with suicidal ideation. She states for the past couple weeks she has been feeling down and depressed. She has not been sleeping well. She has been having some suicidal thoughts but no specific plan. She has thought about giving her kids to her father so they can have a better life. She states that she lost her house as well as her cars. She has been living in a homeless long term with her children. She feels very overwhelmed and feels that her kids life may be better if she is not here. Again she has no specific plan. She does have a history of depression and takes Cymbalta. Physical Examination: Vital signs reviewed. HEENT exam unremarkable. Heart is regular rate and rhythm without murmurs. Lungs are clear to auscultation. Abdomen is soft and nontender. Extremities reveal no edema. Skin exam normal. Neurologic exam normal. Patient is tearful on examination. She does voice some suicidal thoughts but does not have a specific plan Test Results: Screening laboratory examinations are negative except for potassium of 3.3. Toxicology screen reveals cannabinoids Emergency Department Course and Treatment: Patient will be evaluated by crisis and disposition is pending their evaluation Treatment Plan: [] Disposition: [] Impression: Suicidal ideation This note was generated with Statusly software. It may contain incorrect words, spelling, and punctuation that were not noted in review of the chart prior to signing <Karson Aguillon - Last Filed: 04/22/18 15:39> - ER Visit Summary Date of Service: 04/22/18 Chief Complaint: [] History of Present Illness: The patient is a 32 F [] Physical Examination: [] Test Results: [] Emergency Department Course and Treatment: The patient was seen and evaluated by crisis. After long conversation with the patient and family, it was felt that she could be served with outpatient follow-up. She was given a referral to the [facility]. She currently denies any suicidal thoughts or any plan of suicide. Patient be given Vistaril to help with her anxiety. She will be discharged home. She was counseled on concerning symptoms and reasons to return. Treatment Plan: [] Disposition: [] Impression: [] This note was generated with Statusly software. It may contain incorrect words, spelling, and punctuation that were not noted in review of the chart prior to signing <Raphael Robins - Last Filed: 04/22/18 22:23> ED Disposition <Karson Aguillon - Last Filed: 04/22/18 15:39> <Raphael Robins - Last Filed: 04/22/18 22:23> - Plan for ED Patient: Disposition: Home or Assisted Living Chief Complaint: Suicidal Instructions: ED Depression Prescriptions: hydrOXYzine pamoate capsule [Vistaril] 50 mg PO TID PRN PRN #30 cap PRN Reason: Anxiety Referrals: Waqas Simons [Primary Care Provider] - What to do if you have Problems For any increased pain, shortness of breath, bleeding, nausea or vomiting, chest pain, or any unexpected problems, contact your Primary Care Provider. Call [facility] ([phone]) or report to the closest Emergency Room. Call 911 if necessary. 04/23/18 0800 <Electronically signed by Karson Aguillon MD> Date Karson Aguillon MD 04/22/182227<Electronically signed by Raphael Robins MD> Cosigner Signature (If Indicated): Date Raphael Robins MD CC: md Waqas Simons CBC W/DIFF, AUTOMATED Collected: 04/22/2018 Status: F Source: [place] 11:40 [place] [facility] [place] CODE TESTS RESULT OUT OF RANGE REFERENCE UNITS LAB L100.1000 4.4-11.0 K/mm3 High WBC 13.1 LAB L100.1200 4.2-5.4 M/mm3 Normal RBC 4.63 LAB L100.1300 12.0-15.0 g/dl Normal HGB 13.8 LAB L100.1400 37-47 % Normal HCT 42.7 LAB L100.1500 81-99 fL Normal MCV 92.2 LAB L100.1600 27.0-32.0 pg Normal MCH 29.8 LAB L100.1700 32-36 g/gl Normal MCHC 32.3 LAB L100.1810 11.6-14.6 % Normal RDW CV 14.1 LAB L100.1820 35.1-43.9 fl High RDW SD 47.3 LAB L100.1900 150-450 K/mm3 Normal PLT 412 LAB L100.2000 6.2-12.0 fl Normal MPV 9.8 LAB L100.2100 47-70 % High NEUT% 79.0 LAB L100.2200 19-41 % Low LY% 15.0 LAB L100.2300 0-10 % Normal MONO% 4.8 LAB L100.2400 0-5 % Normal EO% 0.6 LAB L100.2500 0-1 % Normal BASO% 0.4 LAB L100.2550 0.0-0.9 % Normal IM GRAN % 0.200 Result Comment: IG% - Immature Granulocytes (promyelocytes, myelocytes and metamyelocytes) > 1% indicates that a LEFT SHIFT is Present. LAB L100.2620 2.0-7.7 X10 3/uL High Absolute Neut 10.4 LAB L100.2720 0.83-4.51 X10 3/ul Normal Absolute Lymph 1.97 Performed By: #### L100.0100 #### [facility] [address] [place], [address] BASIC METABOLIC Collected: 04/22/2018 Status: F Source: [place] PROFILE (BMP) 11:40 AM [facility] [place] CODE TESTS RESULT OUT OF RANGE REFERENCE UNITS LAB L501.0100 74-106 mg/dL Normal GLU 103 Result Comment: Fasting Glucose result from 100 to 125 mg/dL suggests IMPAIRED HOMEOSTASIS per A.D.A. criteria. Please note revised GLUCOSE reference range effective 2017. LAB L501.1000 7-18 mg/dL Normal BUN 10 LAB L501.1100 0.55-1.02 mg/dL Normal CREAT,SERUM 0.56 Result Comment: The validity of the calculated GFR AND GFRAA in patients over 70 years has not been determined. Clinical correlation is essential. LAB L501.1110 >60 mL/min Normal EST GFR 132 Result Comment: Non- GFR Calc LAB L501.1115 >60 mL/min Normal EST GFR - AA 160 Result Comment: GFR Calc LAB L501.1255 ml/min Normal Estimated CRCL 114.07 LAB L501.1300 10-20 RATIO BUN/CRE Normal 17.8 LAB L501.2200 8.5-10 mg/dL .1 CA Normal 8.5 LAB L501.5300 136-14 mmol/L 5 NA Normal 139 LAB L501.5600 3.5-5. mmol/L Low 1 K 3.3 LAB L501.5900 98-107 mmol/L CL Normal 107 LAB L501.6100 21.0-3 mmol/L 2.0 CO2 Normal 26.0 LAB L501.6200 5-15 GAP Normal 6 Performed By: #### L500.2500 #### [facility] [address] [place], [address] ,SERUM,HCG QUALI. Collected: Status: F Source: [place] 04/22/2018 11:40 AM [facility] CODE TESTS RESULT OUT OF REFERENCE UNITS RANGE LAB L700.6700 =>Qualitative mIU/mL Normal HCG Qual < 1 triggr LAB L700.7000 0-9 Nonpreg Negative Normal HCGSQUAL NEGATIVE Performed By: #### L700.6800 #### [facility] [address] [place], [address] ALCOHOL, BLOOD Collected: 04/22/2018 Status: F Source: DAVE (MEDICAL)-SERUM 11:40 AM [facility] [place] TYPE CODE TESTS RESULT OUT OF RANGE REFERENCE UNITS LAB L501.9100 mg/dL Normal SERUM 6.0 ETOH Result Comment: The serum:whole blood ethanol ratio is approximately 1.14 and varies slightly with hematocrit. Medical Alcohol reference interval and critical value in non-tolerant individuals; 50 - 100 Impairment 100 Intoxication 100 - 250 Severe Poisoning 250 - 400 Deep/possible fatal coma Performed By: #### L501.9100 #### [facility] [address] [place], [address] URINE DRUG SCREEN Collected: 04/22/2018 Status: F Source: DAVE (VISTA) 11:30 AM [facility] [place] CODE TESTS RESULT OUT OF RANGE REFERENCE UNITS LAB L505.0075 TO BE Normal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 INC) Nitrite Ur Ql Strip Negative LAB 5804-0(LO NEGATIVE INC) Prot Ur Strip-mCnc Negative LAB 5792-7(LO NEGATIVE INC) Glucose Ur Strip-mCnc Negative LAB 5797-6(LO NEGATIVE INC) Ketones Ur Abnormal Strip-mCnc Trace LAB 66722-5(L <=1 E.U./dL OINC) Urobilinogen 0.2 E.U./dL Ur-aCnc LAB 61410-2(L NEGATIVE OINC) Bilirub Ur Strip-mCnc Negative LAB 05791-8(L NEGATIVE OINC) RBC # Ur Strip Negative Performed By: #### 2106-3, 93919-2 #### [facility] [address] [place] [address] Communications Professional - Shanika WALSH [id number] ALLERGIES ALLERGIES DATE TYPE / NAME / CODE REACTION SEVERITY SOURCE CODE 07/08/2018 Drug amoxicillin/F0060 Anaphylaxis Unknown [place] Allergy/41 08330(RXNORM) [facility] [id number]([facility]) Repository 06/19/2014 [facility] [place] [address] [id number]([facility] OMED CT) Drug Amoxicillin/3675( UNKNOWN [facility] Allergy/41 RXNORM) [facility] [id number]([facility]) ENCOUNTERS ENCOUNTERS ADMIT/DISCHARGE ACCOUNT ADMITTING ENCOUNTER LOCATION SOURCE NUMBER CLASS 07/08/2018/07/08/19 [id number] Emergency [address] ing:ED Repository 06/30/2018/07/05/19 [id number] Ambulatory [address] [place] Repository 06/30/2018/06/30/19 [id number] Ambulatory [address] Repository 06/24/2018/06/25/19 [id number] Ambulatory [address] Repository 05/18/2018/05/19/20 [id number] Ambulatory [address] Repository 05/14/2018 [id number] [facility] ing:IOP Repository 05/03/2018 [id number] Ambulatory [facility] ing:BHIOP Repository 04/22/2018/04/22/20 [id number] Emergency [address] Hospital ing:ED Repository 04/15/2018/05/07/20 [id number] Ambulatory [address] Repository 04/12/2018/04/12/20 [id number] Ambulatory [address] Repository 04/12/2018/04/14/20 [id number] Ambulatory [address] Repository 01/12/2018/01/13/20 [id number] Ambulatory BMSBuilding:B [address] Repository 12/21/2017/12/22/19 [id number] Emergency [address] ing:ED Repository 10/28/2017/10/29/19 [id number] [facility], Ambulatory Alexandre Alexandre [address] [facility] LiveBuilding: Repository PHY 10/02/2017/10/03/19 [id number] [facility], Ambulatory Alexandre Alexandre 18 [facility] LiveBuilding: Repository KMP RAD 09/23/2017/09/24/19 [id number] [facility] Alexandre Alexandre 18 [facility] LiveBuilding: Repository PHY 09/11/2017/09/12/19 [id number] [facility], Ambulatory Alexandre Alexandre 18 [facility] LiveBuilding: Repository PHY 09/07/2017/09/08/19 [id number] Emergency [address] Hospital ing:ED Repository 09/03/2017/09/04/19 [id number] [facility], Ambulatory Alexandre Alexandre [address] [facility] LiveBuilding: Repository EMERGENCY DEPTRoom: TR2Bed: A 08/25/2017/08/26/19 [id number] BERNARDO Ambulatory Alexandre Alexandre 18 [address] [facility] LiveBuilding: Repository PHY 08/22/2017/08/23/19 [id number] AGNES HARDWICK Ambulatory Alexandre Alxeandre 18 [facility] LiveBuilding: Repository EMERGENCY DEPTRoom: ED7Bed: A PAYERS PAYERS ENCOUNTER GUARANTOR PAYER SUBSCRIBER SOURCE 07/08/2018 ANGIE MYRICK Primary ANGIE Acosta [place] Insurance:CARESOURCAGUILAR BAUMANNB: [facility] Number: [id number] Hospital [address]Yam: 330 [id number] Repository 62 () Date:2018-07-08[address]ATTN: [place] [address]IK: 07/08/2018 Secondary NOT GIVENUNK [place] Insurance:SELF PAY [facility] Number: Effective Repository Date:2018-07-08 05/14/2018 ANGIE Wolff Primary ANGIE BAUM[address] Insurance:CARESOURCEP B: [facility] Number: [id number] Hospital [address]Axd: 330 [id number] Repository 62 () Date:2018-05-12[address]ATTN: [place] [address]EG: 05/14/2018 Secondary NOT GIVENUNK [place] Insurance:SELF PAY [facility] Number: Effective Repository Date:2018-05-12 05/03/2018 ANGIE Wolff Primary ANGIE BAUM[address] Insurance:CARESOURCEP TODB: [facility] Number: [id number] Hospital [address]Zxx: 330 [id number] Repository 62 () Date:2018-04-30[address]ATTN: [place] [address]VP: 05/03/2018 Secondary NOT GIVENUNK Dave Insurance:SELF PAY [facility] Number: Effective Repository Date:2018-04-30 04/22/2018 ANGIE Wolff Primary ANGIE [address]RI[address] Insurance:CARESOURCEP TODB: [facility] Number: [id number] Hospital [address]Pbs: 330 [id number] Repository 62 (HP) Date:2018-04-22[address]ATTN: [place] [address]HU: 04/22/2018 Secondary NOT GIVENUNK [place] Insurance:SELF PAY [facility] Number: Effective Repository Date:2018-04-22 01/12/2018 ANGIE Wolff Primary NOT GIVENUNK Dave [id number] Insurance:SELF PAY [address] [address]Gco: ([phone]) Number: Effective Repository [phone] (HP) Date:2018-01-12 12/21/2017 ANGIE M Primary ANGIE M [place] [id number] Insurance:CARESOURCEP HAIRSTONDOB: [address] Number: [id number] Hospital [address]Frv: 330) [id number] Repository [phone] () Date:2017-12-21[address]ATTN: [place] [address]CV: 12/21/2017 Secondary NOT GIVENUNK Dave Insurance:SELF PAY [facility] Number: Effective Repository Date:2017-12-21 10/28/2017 ANGIE Primary ANGIE Alexandre Community HAIRSTONDOB: Insurance:CARESOURCE HAIRSTONDOB: [facility] [id number] Repository GUILLERMO [place] Number: [address] [place], [place] [id number] [place] [address]Ioy: (740) Date: [place] [address] [phone] (HP) [address], [place] [address]~[address]WP: 10/02/2017 ANGIE Primary ANGIE Alexandre [facility] HAIRSTONDOB: Insurance:CARESOURCE HAIRSTONDOB: [facility] [id number] Repository GUILLERMO [place] Number: [address] [place], [place] [id number] [place] [address]Txr: (740) Date:[place] [address] [phone] (HP) [address] [address]~[address]WP: 09/23/2017 ANGIE Primary ANGIE Alexandre [facility] HAIRSTONDOB: Insurance:CARESOURCE HAIRSTONDOB: [facility] [id number] Repository GUI[place]ERMO [place] Number: [address] [facility] [place] [id number] [place] [address]Zff: (740) Date:[place] [address] [phone] (HP) [address], [place] [address]~[address]WP: 09/11/2017 ANGIE Primary ANGIE Alexandre [facility] HAIRSTONDOB: Insurance:CARESOURCE HAIRSTONDOB: [facility] [id number] Repository GUILLERMO [place] Number: [address] [facility] [place] [id number] [place] [address]Poo: ([phone]) Date:[place] [address] [phone] (HP) [address], [place] [address]~[address]WP: 09/07/2017 ANGIE M Primary ANGIE M Dave [id number] Insurance:CARESOURCEP [facility]IRSST. [facility]TING[facility]: [facility] Number: [id number] [place] [id number] Repository [address]Dgb: ([phone]) Date:2017-09-07 [address] [phone] (HP) [address]ATTN: [place] [address]LI: 09/07/2017 Secondary NOT GIVENUNK Dave Insurance:SELF PAY [facility] Number: Effective Repository Date:2017-09-07 09/03/2017 ANGIE M Primary [facility] Insurance:CARESOURCE HAIRSTONDOB: [facility] [id number] Repository GUILLERMO [place] Number: [address] [place], [place] [id number] [place] [address]Fxj: Date:[phone] [address] ~(4 [address], [place] 19 (HP) [address]~[address]WP: 08/25/2017 ANGIE [facility]: [facility] SAULTB: [facility] [id number] Repository GUILLERMO [place] Number: [address] [place], [place] [id number] [place] [address]Hih: Date:[place] [address] ~(4 [address], [place] 19 (HP) [address]~[address]WP: 08/22/[address] [facility]: [facility]: [facility] [id number] Repository GUILLERMO [place] Number: [address] [place], [place] [id number] [place] [address]Qoj: Date:[id number] [address] ~(7 [address], [place] 40 (HP) [address]~[address]WP:
== END 2018-07-08 19:01 | disposition home or self-care (01) ==
LOC: ED 18:19
PROVIDERS: Emergency Provider Emergency Medicine; Family Provider Family Medicine; PCP Family Medicine
DX: S60.221A Contusion of right hand, initial encounter (principal); W23.0XXA Caught, crushed, jammed, or pinched between moving objects, initial encounter; Y93.9 Activity, unspecified; Y92.9 Unspecified place or not applicable; Z72.0 Tobacco use
CPT/HCPCS: 73130; 99283

== ENCOUNTER 2020-12-03 10:30 | Emergency (ER) | payer SELFPAY ==
[2020-11-13 10:31] VITALS: BMI 26.4
[2020-12-03 10:32] VITALS: BP 106/75; PULSE 113; RESP 14; TEMP 36.6; O2SAT 97; BMI 26.5
--- NOTE | 2020-12-03 11:07 | RAD_ITS ---
STUDY: X-RAY - RIGHT ANKLE REASON FOR EXAM: Female, 35 years old. Injury TECHNIQUE: 3 view(s) of the ankle. COMPARISON: None. FINDINGS: Normal visualized distal tibia and fibula. Normal medial and lateral malleoli. Normal tibiotalar articulation and ankle mortise. Normal visualized talus and calcaneus. The visualized subtalar, talonavicular, calcaneocuboid and tarsal articulations are normal. The soft tissue structures are unremarkable. RAD/Ankle min 3 Views IMPRESSION: Normal x-ray examination of the ankle. Electronically Signed: Remi Dolan MD at 11:21 EDT , Service support ,
--- NOTE | 2020-12-03 11:07 | ED.VIS.LOWEX ---
HPI History of Present Illness Chief Complaint: Lower Extremity Injury Informant: patient Narrative Narrative: 35-year-old female states she was walking down to a [place] and there was a snake on her path. She stepped off the path 2 or 3 feet to avoid the snake and sustained a fall into stinging metal bushes. She states she injured the posterior medial aspect of the foot/ankle. She notes painful walking. She states she also has a rash from the henao. [facility] Home Medications NK 08/22/18 [History Last Taken Unknown] Allergy/AdvReac Type Severity Reaction Status Date / Time amoxicillin Allergy Anaphylaxis Verified 12/03/20 10:32 Social History (Updated 12/03/20 @ 11:[address] Patel Zavala, DO) Smoking Status: Current every day smoker tobacco type: cigarettes substance use type: does not use ROS ROS ED Constitutional Constitutional ED: Denies chills or weight loss Eyes Eyes: Denies change in vision or diplopia ENT ENT ED: Denies ear pain, rhinorrhea or sore throat Cardiovascular Cardiovascular: Denies chest pain, orthopnea, palpitations or racing heartbeat Respiratory/Chest Respiratory/Chest: Denies cough, dyspnea or orthopnea Gastrointestinal Gastrointestinal: Denies abdominal pain, diarrhea, nausea or vomiting Genitourinary Genitourinary ED: Denies dysuria, hematuria or urinary frequency Musculoskeletal Musculoskeletal: Reports other Details: Right ankle pain ; Denies arthralgias or myalgias Integumentary Reports rash; Denies abscess Neurologic Neurologic: Denies headache(s) or weakness Psychiatric Psychiatric: Denies anxiety, depression, suicidal ideation or suicidal thoughts Endocrine Endocrinology: Denies polydipsia, polyphagia or polyuria Allergic/Immunologic Allergic/Immunologic ED: Denies mouth swelling, tongue swelling or urticaria EXAM Physical Exam Const Vital Signs: 12/03/20 10:32 Temperature 97.9 F Temperature Source Temporal Pulse Rate 113 H Respiratory Rate 14 Blood Pressure 106/75 Blood Pressure Mean 85 Pulse Ox 97 Oxygen Delivery Method Room Air Positive well nourished and well developed General Appearance ED: well developed HEENT Reports normocephalic, head/scalp atraumatic and moist mucous membranes Eyes PERRL and EOMs intact bilaterally Neck no lymphadenopathy, supple and no JVD Resp normal respiratory effort and clear to auscultation bilaterally Cardio regular rate, regular rhythm and no murmurs GI normal to inspection, nondistended, normoactive bowel sounds and non-tender Palpation: soft Back/Spine no CVA tenderness and normal ROM Extremity Extremity Narrative: Tender to palpation along the Achilles tendon and the calcaneus. No significant swelling. No malleoli or pain. No fibular head pain. No fifth metatarsal pain. Neurovascularly intact General Extremety ED: Negative for edema General Extremity: Negative for edema Neuro oriented x3 and CN's II-XII intact bilaterally Sensorium / Orientation: alert Motor Exam: strength 5/5 throughout Psych mental status grossly normal Mood & Affect: Negative for depressed or tearful Skin no rashes or lesions noted Skin Narrative: There is a erythematous rash in linear patterns also a few urticarial lesions on the right lower leg MDM MDM MDM Narrative Medical decision making narrative: My interpretation of the plain films of the right ankle is no acute fracture. Radiology concurs. We will Gordon wrap the ankle. Recommend continued ice. I also gave her a dose of Kenalog and would recommend topical Benadryl for the rash. Radiography Diagnostic Testing: Radiology Impression Ankle X-Ray 12/03/20 11:07 IMPRESSION: Normal x-ray examination of the ankle. Electronically Signed: Remi Dolan MD at 11:21 EDT , Service support , Discharge Plan Triage Chief Complaint: Lower Extremity Injury ED Provider: Patel Zavala Dx/Rx/DC Orders Clinical Impression: Contact dermatitis, Strain of Achilles tendon Instructions: ED Contact Dermatitis, ED Tendonitis Prescriptions: No Action NK RF: 0 Primary Care Provider: Waqas Simons Referrals: Waqas Simons MD [Primary Care Provider] - 10-14 Days if not better Disposition Disposition: Home, self care
[2020-12-03] MEDS: Triamcinolone Acetonide 40 MG/ML Vial IM (11:50)
[2020-12-03 12:13] VITALS: RESP 20
== END 2020-12-03 12:14 | disposition home or self-care (01) ==
PROVIDERS: Emergency Provider Emergency Medicine; PCP Family Medicine
DX: S86.011A Strain of right Achilles tendon, initial encounter (principal); L25.9 Unspecified contact dermatitis, unspecified cause; F17.210 Nicotine dependence, cigarettes, uncomplicated; W18.30XA Fall on same level, unspecified, initial encounter; Y93.01 Activity, walking, marching and hiking; Y92.89 Other specified places as the place of occurrence of the external cause; Y99.8 Other external cause status
CPT/HCPCS: 73610; 96372; 99282

== ENCOUNTER 2022-11-18 21:27 | Emergency (ER) | payer MEDICAID, SELFPAY ==
[2022-11-18 21:28] VITALS: BP 116/87; PULSE 91; RESP 15; TEMP 36.9; O2SAT 99
[2022-11-18 22:16] LABS: Amphetamine Urine VISTA POSITIVE (<1000 ng/mL); Barbiturate Urine VISTA NEGATIVE (< 200 ng/mL); Benzodiazepine Urine VISTA NEGATIVE (< 200 ng/mL); Cocaine Urine VISTA NEGATIVE (< 300 ng/mL); Ecstacy Urine VISTA NEGATIVE (< 500 ng/mL); Methadone Urine VISTA NEGATIVE (< 300 ng/mL); PCP Urine VISTA NEGATIVE (< 25 ng/mL); THC Urine VISTA NEGATIVE (< 50 ng/mL); Vista UDS pH Range 6
--- NOTE | 2022-11-18 22:32 | EX.ED.DYSGE1 ---
HPI History of Present Illness Chief Complaint: Substance Abuse Informant: patient Narrative Narrative: Patient is a 37-year-old female with previous history of substance abuse. She takes Cymbalta for depression and trazodone for sleep. She states she has been sober for 9 months. 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 Otherwise patient reports no complaint PFSH PFSH Medical History Factor V Leiden Home Medications NK 08/22/18 [History Last Taken Unknown] Allergy/AdvReac Type Severity Reaction Status Date / Time amoxicillin Allergy Anaphylaxis Verified 11/18/22 21:31 Social History (Updated 12/03/20 @ 11:[address] Patel Zavala DO) Smoking Status: Current every day smoker tobacco type: cigarettes substance use type: does not use ROS ROS ED Constitutional Constitutional ED: Denies chills or fever(s) Eyes Eyes: Denies change in vision ENT ENT ED: Denies sore throat Cardiovascular Cardiovascular: Denies chest pain Respiratory/Chest Respiratory/Chest: Denies cough or dyspnea Gastrointestinal Gastrointestinal: Denies abdominal pain, diarrhea, nausea or vomiting Genitourinary Genitourinary ED: Denies dysuria Musculoskeletal Musculoskeletal: Denies myalgias Integumentary Denies rash Neurologic Neurologic: Denies headache(s) Hematologic/Lymphatic Hematologic/Lymphatic: Denies easy bleeding or easy bruising EXAM Physical Exam Const Vital Signs: 11/18/22 21:28 Temperature 98.5 F Temperature Source Temporal Pulse Rate 91 Respiratory Rate 15 Blood Pressure 116/87 H Blood Pressure Mean 96 Pulse Ox 99 Oxygen Delivery Method Room Air Positive well nourished and well developed General Appearance ED: well developed Eyes PERRL and EOMs intact bilaterally Neck supple Resp normal respiratory effort and clear to auscultation bilaterally Cardio regular rate and regular rhythm Extremity normal to inspection Neuro oriented x3 and CN's II-XII intact bilaterally Sensorium / Orientation: alert Psych mental status grossly normal Skin no rashes or lesions noted MDM MDM MDM Narrative Medical decision making narrative: Patient presented to the ER with stable vitals and no complaints other than needing a urine tox screen to appease her required court obligations. Therefore a urine tox cream was ordered. The toxin was positive for amphetamines but patient reports taking Cymbalta and trazodone. Trazodone does have the potential to cross-react causing a false positive amphetamine screen. The patient is adamant she has not done any amphetamines or relapsed and does report recent taking her trazodone for sleep. This does correlate with her positive tox screen and therefore do not feel that it is truly positive but a false positive related to the trazodone. Patient was advised to inform her report of this but at this time she is not homicidal or suicidal her vitals are stable and therefore there is no need for further evaluation or psychiatric work-up and he is otherwise safe for discharge. History & Record Review Discussion w/independent historian: Patient Lab Data Attestation: I reviewed the patient's lab results. Labs: Laboratory Results - last 24 hr 11/18/22 21:50 Urine Opiates Screen NEGATIVE Urine Methadone Screen NEGATIVE Ur Barbiturates Screen NEGATIVE Ur Phencyclidine Scrn NEGATIVE Ur Amphetamines Screen POSITIVE H MDMA (Ecstasy) Screen NEGATIVE U Benzodiazepines Scrn NEGATIVE Urine Cocaine Screen NEGATIVE U Cannabinoids Screen NEGATIVE Ur Drug Screen Comment Discharge Plan Triage Chief Complaint: Substance Abuse ED Provider: Donny Marlow Dx/Rx/DC Orders Clinical Impression: Normal physical exam Instructions: ED Screening Exam Medical Nonurgent Prescriptions: No Action NK Primary Care Provider: Waqas Simons Referrals: Waqas Simons MD [Primary Care Provider] - Activity Restrictions/Additional Instructions: Your tox urine today was positive for amphetamines however you are on trazodone and trazodone can cross-react with the urine drug screen and make amphetamines look positive when really they are not in your system. Therefore please talk to your doctor about changing your trazodone that you take for sleep to a different medication to avoid any false positive drug test in the future Disposition Disposition: Home, Self Care Discharge Date/Time: 11/18/22 22:59
[2022-11-18 22:57] VITALS: BMI 21.2
== END 2022-11-18 22:59 | disposition home or self-care (01) ==
PROVIDERS: Emergency Provider Emergency Medicine; PCP Family Medicine; Visit Provider Emergency Medicine
DX: F19.10 Other psychoactive substance abuse, uncomplicated (principal); D68.51 Activated protein C resistance; F32.A Depression, unspecified; F17.210 Nicotine dependence, cigarettes, uncomplicated; Z79.899 Other long term (current) drug therapy
CPT/HCPCS: 80307; 99282

== ENCOUNTER 2022-11-26 23:28 | Emergency (ER) | payer MEDICAID, SELFPAY ==
[2022-11-26 23:29] VITALS: BP 112/63; PULSE 87; RESP 16; TEMP 36.6; O2SAT 97; BMI 25.8
--- NOTE | 2022-11-26 23:56 | EX.ED.DYSGE1 ---
HPI History of Present Illness Chief Complaint: Lower Extremity Injury Narrative Narrative: Patient is a 37-year-old female who states that the other day she dropped a 55 pound trauma of cat litter on her left foot. She states she had severe pain and swelling following the trauma and was concerned for fracture. She went to an outside hospital where she reportedly had x-rays taken which revealed no acute fracture. She was given crutches to help with ambulation as it is difficult to bear weight on the foot contusion. However she has a past medical history of right rotator cuff tear and using the crutches is causing increased pain to the rotator cuff/shoulder region. She states she contacted her orthopedic surgeon who advised her not to use her crutches and to seek possible walking boot to help with her symptoms and therefore she presents for evaluation at this time. Patient states she has been no new trauma since her visit at the outside hospital [facility] Medical History Factor V Leiden Home Medications NK 08/22/18 [History Last Taken Unknown] Allergy/AdvReac Type Severity Reaction Status Date / Time amoxicillin Allergy Anaphylaxis Verified 11/26/22 23:32 Social History (Updated 12/03/20 @ 11:[address] Patel Zavala DO) Smoking Status: Current every day smoker tobacco type: cigarettes substance use type: does not use ROS ROS ED Constitutional Constitutional ED: Denies chills or fever(s) ENT ENT ED: Denies sore throat Cardiovascular Cardiovascular: Denies chest pain Respiratory/Chest Respiratory/Chest: Denies cough or dyspnea Gastrointestinal Gastrointestinal: Denies abdominal pain, diarrhea, nausea or vomiting Genitourinary Genitourinary ED: Denies dysuria Musculoskeletal Musculoskeletal: Reports other Details: Positive right foot pain Integumentary Reports Abrasions; Denies rash Neurologic Neurologic: Reports paresthesias; Denies headache(s) Hematologic/Lymphatic Hematologic/Lymphatic: Denies easy bleeding or easy bruising EXAM Physical Exam Const Vital Signs: 11/26/22 23:29 Temperature 98 F Temperature Source Temporal Pulse Rate 87 Respiratory Rate 16 Blood Pressure 112/63 Blood Pressure Mean 79 Pulse Ox 97 Oxygen Delivery Method Room Air Positive well nourished and well developed General Appearance ED: well developed Eyes PERRL and EOMs intact bilaterally Neck supple Resp normal respiratory effort and clear to auscultation bilaterally Cardio regular rate and regular rhythm Extremity Extremity Narrative: Left lower extremity is neurovascularly intact. There is soft tissue swelling on the dorsal aspect of the left foot with a superficial abrasion over top the first metatarsal. There is faint ecchymosis as well consistent recent trauma. No signs of bony deformity or joint effusion. No ligamentous or tendon injury noted. No subungual hematoma. Achilles tendon is intact and ankle ligaments are stable. Neuro oriented x3 and CN's II-XII intact bilaterally Sensorium / Orientation: alert Psych mental status grossly normal Skin Skin Narrative: Soft tissue changes to the left foot as documented above MDM MDM MDM Narrative Medical decision making narrative: Patient presented to the ER after a direct trauma to her left foot. She reported that x-rays had already been done at an outside hospital and she also reported there is been no new injury since that initial evaluation so I felt no need to repeat these. Differential diagnosis is foot fracture versus dislocation versus contusion. Based on the fact she reports negative x-rays patient would have a left foot contusion. By exam there is no signs of Achilles tendon or ankle ligament instability so there is no need for emergent orthopedic consultation or splinting. Patient will be given a Gordon wrap and walking boot to help with symptoms and is otherwise safe for discharge. History & Record Review Discussion w/independent historian: Patient Lab Data Labs: Laboratory Results - last 24 hr 11/27/22 00:08 Ur Drug Screen Comment Discharge Plan Triage Chief Complaint: Lower Extremity Injury ED Provider: Donny Marlow Dx/Rx/DC Orders Clinical Impression: Contusion of foot, right Instructions: ED Foot Contusion, ED Crush Injury, Foot/Toe Prescriptions: No Action NK Primary Care Provider: Waqas Simons Referrals: Waqas Simons MD [Primary Care Provider] - Activity Restrictions/Additional Instructions: Please wear your Gordon wrap for compression and continue to wear your walking boot for stabilization. Continue to ice the area to reduce pain and speed healing and return to the ER should you have any further concerns Disposition Disposition: Home, Self Care
[2022-11-27 00:34] LABS: Amphetamine Urine VISTA POSITIVE (<1000 ng/mL); Barbiturate Urine VISTA NEGATIVE (< 200 ng/mL); Benzodiazepine Urine VISTA NEGATIVE (< 200 ng/mL); Cocaine Urine VISTA NEGATIVE (< 300 ng/mL); Ecstacy Urine VISTA NEGATIVE (< 500 ng/mL); Methadone Urine VISTA NEGATIVE (< 300 ng/mL); PCP Urine VISTA NEGATIVE (< 25 ng/mL); THC Urine VISTA NEGATIVE (< 50 ng/mL); Vista UDS pH Range 7
== END 2022-11-27 00:58 | disposition home or self-care (01) ==
PROVIDERS: Emergency Provider Emergency Medicine; PCP Family Medicine; Visit Provider Emergency Medicine
DX: S90.31XA Contusion of right foot, initial encounter (principal); F17.210 Nicotine dependence, cigarettes, uncomplicated; X58.XXXA Exposure to other specified factors, initial encounter
CPT/HCPCS: 80307; 99283

== ENCOUNTER 2022-12-10 19:58 | Emergency (ER) | payer MEDICAID, SELFPAY ==
[2022-12-10 19:59] VITALS: BP 115/73; PULSE 81; RESP 15; TEMP 36.7; O2SAT 100; BMI 25.2
--- NOTE | 2022-12-10 20:08 | EX.ED.DYSGE1 ---
HPI History of Present Illness Chief Complaint: Substance Abuse Detail of Chief Complaint: Needs drug screen Narrative Narrative: Patient presents requesting urine drug screen. She is currently a client at [facility] as [facility] She states that when they call and tell her she needs to have a urine drug screen she is not was able to make it during the day because she works. She did not get off work until after 6 PM this evening and was told she need to have a drug screen performed tonight. She is on trazodone and states sometimes that we will give her a positive amphetamine result. She states her last drug screen did test positive for THC but they are watching her levels to ensure that they are decreasing. [facility] Medical History Factor V Leiden Home Medications NK 08/22/18 [History Last Taken Unknown] Allergy/AdvReac Type Severity Reaction Status Date / Time amoxicillin Allergy Anaphylaxis Verified 12/10/22 20:02 Social History Smoking Status: Current every day smoker tobacco type: cigarettes substance use type: does not use ROS ROS ED Constitutional Constitutional ED: Denies chills or fever(s) Eyes Eyes: Denies discharge from eye(s) ENT ENT ED: Denies discharge from eye(s) Cardiovascular Cardiovascular: Denies chest pain Respiratory/Chest Respiratory/Chest: Denies cough or dyspnea Gastrointestinal Gastrointestinal: Denies abdominal pain, nausea or vomiting Genitourinary Genitourinary ED: Denies dysuria Integumentary Denies Abrasions or rash Neurologic Neurologic: Denies headache(s) or weakness Psychiatric Psychiatric: Denies anxiety or depression Allergic/Immunologic Allergic/Immunologic ED: Denies lip swelling or urticaria EXAM Physical Exam Const Vital Signs: 12/10/22 19:59 Temperature 98.1 F Temperature Source Temporal Pulse Rate 81 Respiratory Rate 15 Blood Pressure 115/73 Blood Pressure Mean 87 Pulse Ox 100 Oxygen Delivery Method Room Air Positive well nourished and well developed General Appearance ED: well developed HEENT Reports moist mucous membranes Eyes EOMs intact bilaterally Chest Wall inspection of chest normal and palpation of chest normal Resp normal respiratory effort and clear to auscultation bilaterally Cardio regular rate and regular rhythm GI normal to inspection, nondistended, normoactive bowel sounds Extremity normal to inspection Neuro no sensory deficits noted Motor Exam: strength 5/5 throughout Skin no rashes or lesions noted MDM MDM MDM Narrative Medical decision making narrative: Urine tox screen obtained. Talk screen is positive for THC. Copy of this result sent with the patient. Lab Data Labs: Laboratory Results - last 24 hr 12/10/22 20:17 Urine Opiates Screen NEGATIVE Urine Methadone Screen NEGATIVE Ur Barbiturates Screen NEGATIVE Ur Phencyclidine Scrn NEGATIVE Ur Amphetamines Screen NEGATIVE MDMA (Ecstasy) Screen NEGATIVE U Benzodiazepines Scrn NEGATIVE Urine Cocaine Screen NEGATIVE U Cannabinoids Screen POSITIVE H Ur Drug Screen Comment Discharge Plan Triage Chief Complaint: Substance Abuse ED Provider: Hannah Garcia Dx/Rx/DC Orders Clinical Impression: Encounter for drug screening Prescriptions: No Action NK Primary Care Provider: Waqas Simons Referrals: Waqas Simons MD [Primary Care Provider] - Disposition Disposition: Home, Self Care
[2022-12-10 21:05] LABS: Amphetamine Urine VISTA NEGATIVE (<1000 ng/mL); Barbiturate Urine VISTA NEGATIVE (< 200 ng/mL); Benzodiazepine Urine VISTA NEGATIVE (< 200 ng/mL); Cocaine Urine VISTA NEGATIVE (< 300 ng/mL); Ecstacy Urine VISTA NEGATIVE (< 500 ng/mL); Methadone Urine VISTA NEGATIVE (< 300 ng/mL); PCP Urine VISTA NEGATIVE (< 25 ng/mL); THC Urine VISTA POSITIVE (< 50 ng/mL); Vista UDS pH Range 7
== END 2022-12-10 21:17 | disposition home or self-care (01) ==
PROVIDERS: Emergency Provider Emergency Medicine; PCP Family Medicine; Visit Provider Emergency Medicine
DX: Z02.83 Encounter for blood-alcohol and blood-drug test (principal); F17.210 Nicotine dependence, cigarettes, uncomplicated
CPT/HCPCS: 80307; 99282